=== PATIENT | male | born 1945 | race Caucasian/White ===

== ENCOUNTER 2016-03-08 18:12 | Emergency (ER) | payer OTHER, MEDICARE ==
[2016-03-08] MEDS ORDERED: NS 0.9% 1000 ML* 2,000 ML IV ONE (18:55)
[2016-03-08 19:50] LABS: Hematocrit 41 % (42-52); Hemoglobin 13.5 g/dl (14.0-18.0); Mean Corpuscular HGB Conc 33 g/dl (31-36); Mean Corpuscular Hemoglobin 29 pg (27-31); Mean Corpuscular Volume 86 fL (80-94); Mean Platelet Volume 8 um3 (7.4-10.4); Red Blood Count 4.72 10^6/ul (4.0-5.4); Red Cell Distribution Width 14 % (10.5-15); White Blood Count 10.5 10^3/ul (3.5-10.8)
[2016-03-08 19:53] LABS: Add Diff/Slide Review? Slide Review Added; Comments Flag Yes
[2016-03-08 20:05] LABS: Albumin 3.8 g/dL (3.2-5.2); BUN/Creatinine Ratio 16.3 (8-20); Calcium 8.6 mg/dL (8.6-10.3); EGFR African American 74.6 (>60); Globulin 3.1 g/dL (2-4); Potassium 3.6 mmol/L (3.5-5.0); Total Bilirubin 0.9 mg/dL (0.2-1.0); Total Protein 6.9 g/dL (6.4-8.9)
[2016-03-08 20:07] LABS: Troponin I 0.01 ng/mL (<0.04)
[2016-03-08] MEDS ORDERED: Ibuprofen TAB* 400 MG PO ONE (20:35)
--- NOTE | 2016-03-08 20:54 | RAD ---
Indication: Cough, fever. Single frontal view of the chest performed at 1930 hours was reviewed. Comparison is made with previous exam dated February 24, 2013. No mediastinal shift is noted. Heart is of normal size and configuration. Lung diamond appear clear. IMPRESSION: NO ACTIVE CARDIOPULMONARY DISEASE IS NOTED.
[2016-03-08] MEDS ORDERED: Oseltamivir CAP* 75 MG PO ONE (21:04)
[2016-03-08 21:11] VITALS: BP 130/83
--- NOTE | 2016-03-08 22:46 | ED ---
I, Oh,Vi, scribed for Kirill Swift MD on 03/08/16 at 1842 . HPI Febrile Illness - HPI Summary HPI Summary: This 70 y/o male presents to ED for intermittent fever and increased general weakness since 3 days ago. Pt was noted with a fall while ambulating due to general weakness. Pt reports chills, productive cough with clear sputum, nasal congestion, general myalgia, and occipital BRICEÑO. Pt has been controlling his symptoms with ibuprofen and Mucinex. PMHx includes chronic low back spasm. Pt denies any n/v/d, diaphoresis, or dysuria. Pt is UTD with flu shot. Primary care involves Dr. Tomas. Daughter and , who are present at bedside, express concern with decreased appetite, increased weakness, and increased difficulty with independent ambulation. 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, Medical Records Onset/Duration: Started Days Ago, Atraumatic, Still Present Timing: Lasting Days - 2 days ago Pain Intensity: 8 Pain Scale Used: 0-10 Numeric Aggravating Factors: Nothing Alleviating Factors: Nothing Associated Signs and Symptoms: Cough - productive, Headache, Myalgia - general, Weakness - Allergy/Home Medications Allergies/Adverse Reactions: Allergies Allergy/AdvReac Type Severity Reaction Status Date / Time Chloramphenicol Allergy Hives Verified 03/08/16 18:27 [From Chloromycetin] PMH/Surg Hx/FS Hx/Imm Hx Cardiovascular History: Reports: Hx Coronary Artery Disease - BORDERLINE CHOLESTEROL CONTROL WITH MEDICATION, Hx Hypercholesterolemia - ON LIPITOR Respiratory History: Denies: Hx Pneumonia - NEW DX 01/26/13 GI History: Reports: Other GI Disorders - HX FATTY LIVER Musculoskeletal History: Reports: Hx Back Problems - CHRONIC BACK PAIN/SPASMS Sensory History: Reports: Hx Contacts or Glasses Denies: Hx Hearing Aid Opthamlomology History: Reports: Hx Contacts or Glasses - Surgical History Surgery Procedure, Year, and Place: 1988 [place]CTOMY,[place], [place]. 2011 [place]OSCOPY, [place]. TRIGER FINGER RELEASE 04/2012 Hx Anesthesia Reactions: No Infectious Disease History: No Infectious Disease History: Denies: Traveled Outside the [place] in Last 30 Days - Family History Known Family History: Positive: Cardiac Disease - Brother - CABG, Diabetes - Brother - Social History Lives: With Family Alcohol Use: None Hx Substance Use: No Substance Use Type: Reports: None Hx Tobacco Use: No Smoking Status (MU): Never Smoked Tobacco Review of Systems Positive: Fever, Chills. Negative: Skin Diaphoresis Positive: Nasal Discharge Negative: Chest Pain Positive: Cough - productive with clear sputum Negative: Vomiting, Diarrhea, Nausea Negative: dysuria Positive: Myalgia - general Positive: Rash - chronic, recurrent rash at back Positive: Headache - occipital BRICEÑO, Weakness - general Negative: Anxious, Depressed All Other Systems Reviewed And Are Negative: Yes Physical Exam - Summary Physical Exam Summary: Constitutional: Well-developed, Well-nourished, Alert. (-) Distressed Skin: Warm, Dry HENT: Normocephalic; Atraumatic Eyes: Conjunctiva normal Neck: Musculoskeletal ROM normal neck. (-) JVD, (-) Stridor, (-) Tracheal deviation Cardio: Rhythm regular, rate normal, Heart sounds normal; Intact distal pulses; The pedal pulses are 2+ and symmetric. Radial pulses are 2+ and symmetric. (-) Murmur Pulmonary/Chest wall: Effort normal. (-) Respiratory distress, (-) Wheezes, (-) Rales Abd: Soft, (-) Tenderness, (-) Distension, (-) Guarding, (-) Rebound Musculoskeletal: (-) Edema Lymph: (-) Cervical adenopathy Neuro: Alert, Oriented x3, Unable to elicit DTR with any of pt's extremities. Psych: Mood and affect Normal Triage Information Reviewed: Yes Vital Signs On Initial Exam: Initial Vitals Temp Pulse Resp BP Pulse Ox 102.6 F 107 22 123/64 92 03/08/16 18:22 03/08/16 18:22 03/08/16 18:22 03/08/16 18:22 03/08/16 18:22 Vital Signs Reviewed: Yes Diagnostics - Vital Signs Vital Signs Temp Pulse Resp BP Pulse Ox 03/08/16 18:22 102.6 F 107 22 123/64 92 - Laboratory Result Diagrams: 03/08/16 19:32 03/08/16 19:32 Lab Statement: Any lab studies that have been ordered have been reviewed, and results considered in the medical decision making process. - Radiology CXR Radiology Interpretation Completed By: Radiologist Re-Evaluation - Re-Evaluation First Eval Re-Evaluation Time: 21:05 Change: Unchanged Comment: MD in room to discuss plan of care involving admission vs. discharge. Family members are comfortable with discharge, and pt himself wants to be discharge. Course/Dx - Diagnoses Provider Diagnoses: Influenza - Provider Notifications Discussed Care Of Patient With: Dr. Martinez (Neurologist) at 1855 PM Time Discussed With Above Provider: 18:55 Discharge - Discharge Plan Condition: Stable Disposition: HOME Prescriptions: Oseltamivir CAP* [Tamiflu CAP*] 75 mg PO BID #10 cap Patient Education Materials: Ibuprofen (By mouth), Oseltamivir (By mouth), Influenza (ED) Referrals: Julius Tomas MD [Primary Care Provider] - The documentation as recorded by the Med garcia Soohyun accurately reflects the service I personally performed and the decisions made by me, Kirill Swift MD.
--- NOTE | 2016-03-08 23:11 | CONS ---
NEUROLOGY CONSULT NOTE: DATE OF CONSULT: 03/08/16 - EMERGENCY DEPT REQUESTING PROVIDER: Dr. Swift in ED. PRIMARY CARE PHYSICIAN: Dr. Julius Tomas. REASON FOR CONSULT: Lower extremity weakness; questionable areflexia in the lower extremities HISTORY OF PRESENT ILLNESS: The patient is a 70-year-old right-handed male who has been having probably an upper respiratory tract infection in the past few days with some coughing, some of which was productive. In the past few days he has been feeling weak and has been resting in bed most of the day. Today, when he tried to get off the bed, he was not able to and had to roll to his side to get off the bed. When he tried to walk, he felt weakness in both legs. He was eventually brought to the ED and as he was walking to the car by his family, he really had difficulty walking and had to grab a wheelchair to get to the car. When he was evaluated in the ED, there was a question of areflexia in the lower extremities and therefore Neurology was called for consult. PAST MEDICAL HISTORY: 1. Dyslipidemia. 2. History of back pain. PAST SURGICAL HISTORY: 1. Status post vasectomy. 2. Status post trigger finger release in April 2012. MEDICATIONS: 1. Diazepam 2. Atorvastatin 20 mg at night 3. Aspirin 81 mg daily 4. Vitamin D ALLERGIES: Chloramphenicol FAMILY HISTORY: Mother at age 82 from an NC, father at age 62 from bacterial endocarditis. Brother, history of diabetes and coronary artery disease. SOCIAL HISTORY: The patient lives with his . 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 No history of tobacco, alcohol use or drug use. REVIEW OF SYSTEMS: Complete review of systems was performed and other than what was mentioned in HPI, was negative. PHYSICAL EXAM: Blood pressure 109/63, pulse 104, respiratory rate 17, O2 sat 94 %. The patient is awake, alert, and oriented x3. Pupils are symmetric and reactive to light. Extraocular movements are intact. Visual diamond are intact to confrontation. V1 to V3 is intact bilaterally to light touch and pinprick. Tongue is in midline. Palate elevates upward. Strength is 5/5 throughout. Sensation is intact to light touch and pinprick in the upper and lower extremities. Reflexes are 2+ in the upper extremities. It is 2+ in the patella and 1+ in the Achilles. [id number] is intact bilaterally. Heel-to- hook is intact bilaterally. Gait is narrow based and steady. DIAGNOSTIC STUDIES/LAB DATA: WBC 10.5, hemoglobin 13.5, hematocrit 41, platelets 138. Sodium 133, potassium of 3.6, BUN 20, creatinine 1.2. Alkaline phosphatase 33, AST 39, ALT 36. ASSESSMENT AND PLAN: The patient is a 70-year-old male with history of upper respiratory tract infection in the past few days, was found to have some difficulty walking today. On the current exam, he has full strength and there is no areflexia and therefore no finding suggestive of Guillain-Frederick syndrome. Probably the patient was deconditioned slightly after a few days of lying down on the bed and had some difficulty ambulating after standing up. No further neurological workup is needed at this point. CC: Dr. Julius Tomas* [id number]/[facility] #: [id number] MTDD
== END 2016-03-08 21:28 | disposition home or self-care (01) ==
LOC: ED 18:12
DX: J11.1 Influenza due to unidentified influenza virus with other respiratory manifestations (principal); R53.1 Weakness; R05 Cough; R21 Rash and other nonspecific skin eruption; R51 Headache
CPT/HCPCS: 36415; 71010; 80053; 83605; 84484; 85025; 85610; 85730; 87040; 87502; 93005; 99283; A9270-GY

== ENCOUNTER 2017-03-28 10:13 | Observation (INO) | payer BC, MEDICARE ==
[2017-03-28 10:50] LABS: ABS Basophils 0 10^3/ul (0-0.2); ABS Eosinophils 0 10^3/ul (0-0.6); ABS Lymphocytes 1.1 10^3/ul (1.0-4.8); ABS Neutrophils 5.3 10^3/ul (1.5-7.7); ABS Nucleated RBC 0 10^3/ul; Eosinophil % 0.1 % (0-6); Hematocrit 45 % (42-52); Hemoglobin 15.2 g/dl (14.0-18.0); Lymphocyte % 14.5 % (25-47); Mean Corpuscular HGB Conc 34 g/dl (31-36); Mean Corpuscular Hemoglobin 29 pg (27-31); Mean Corpuscular Volume 87 fL (80-94); Mean Platelet Volume 7 um3 (7.4-10.4); Nucleated Red Blood Cells % 0; Platelet Count 175 10^3/ul (150-450); Red Blood Count 5.21 10^6/ul (4.0-5.4); Red Cell Distribution Width 14 % (10.5-15); White Blood Count 7.5 10^3/ul (3.5-10.8)
[2017-03-28 11:06] LABS: EGFR Non-African American 58.4 (>60)
--- NOTE | 2017-03-28 11:11 | RAD ---
INDICATION: Weakness. COMPARISON: Comparison is made with prior study from March 08, 2016. TECHNIQUE: A portable view of the chest was obtained. FINDINGS: Cardiac and mediastinal contours appear to be within normal limits. The lungs are clear. No pleural effusion is seen. IMPRESSION: NO EVIDENCE FOR ACUTE DISEASE.
[2017-03-28] MEDS ORDERED: Aspirin Low Dose CHEW TAB* 81 MG PO ONE (11:25)
[2017-03-28] MEDS ORDERED: Aspirin Low Dose CHEW TAB* 81 MG ONE (11:25)
[2017-03-28] MEDS ORDERED: NS 0.9% 1000 ML* 1,000 ML IV SCH (11:45)
[2017-03-28] MEDS ORDERED: Iodixanol* (CONTRAST) 320 MG/ML 100 ML SDV IV ONE (12:01)
--- NOTE | 2017-03-28 12:21 | RAD ---
INDICATION: Tachycardia, low oxygenation, elevated troponin. COMPARISON: Comparison is made with a prior chest x-ray study from March 28, 2017. TECHNIQUE: A CT angiogram of the chest was performed with intravenous following intravenous injection of 92 ml of is a PICC 320 nonionic contrast. Contiguous axial sections were obtained from the lung apices through the lung bases. Images were reconstructed in the coronal and sagittal planes. FINDINGS: Examination of the pulmonary arteries is limited due to motion artifact at the level of the lung bases and basilar segmental arteries. No intraluminal filling defect or pulmonary embolism is seen. The heart is within normal limits in size. No pericardial effusion is present. The thoracic aorta is normal in caliber and demonstrates homogeneous contrast opacification. There are mildly prominent mediastinal lymph nodes measuring up to 0.9 cm in transverse dimension although no enlarged lymph nodes are seen by size criteria. No enlarged hilar lymph nodes are noted. There are mild dependent bilateral lower lobe infiltrates left greater than right suggestive of atelectasis. No pleural effusion is seen. Images of the upper abdomen demonstrate fatty infiltration of the liver and cholelithiasis. No gallbladder wall thickening is noted. No significant focal osseous abnormality is seen. IMPRESSION: 1. LIMITED STUDY, NO EVIDENCE FOR PULMONARY EMBOLISM. 2. SMALL DEPENDENT BILATERAL LOWER LOBE INFILTRATES SUGGESTIVE OF ATELECTASIS. 3. CHOLELITHIASIS AND HEPATIC STEATOSIS.
[2017-03-28] MEDS ORDERED: NS 0.9% 1000 ML* 1,000 ML BOLUS SCH (13:00)
[2017-03-28 13:55] LABS: Urine Appearance Clear; Urine Blood 3+ (Negative); Urine Color Yellow; Urine Ketones Trace (Negative); Urine Protein 2+(100 mg/dL) (Negative); Urine Specific Gravity 1.033 (1.010-1.030); Urine Urobilinogen Negative (Negative)
[2017-03-28] MEDS: Metoprolol Tartrate TAB* 25 MG PO SCH ×2 (15:14→23:17)
[2017-03-28] MEDS: NS 0.9% 1000 ML* 1,000 ML IV SCH ×2 (15:14→20:53)
[2017-03-28] MEDS: guaiFENesin ER TAB 600 MG PO SCH ×2 (18:16→21:07)
--- NOTE | 2017-03-28 20:42 | CONS ---
CC: Dr. Margaret Huertas * CONSULTATION REPORT: DATE OF CONSULT: 03/28/17 PATIENT OF: Dr. Tomas. HISTORY OF PRESENT ILLNESS: This is a 71-year-old right-handed man, who has had a congestion with severe cough in the past week or so and has been started on Tamiflu and has had some progressive weakness. His history varies. He was basically bed bound since Wednesday with the flu, but was able to get up and out of bed on Wednesday to go to the bathroom. It is unclear whether he tried to get out of bed yesterday, but last night, when he tried to get out of bed, he could not and he fell on the floor a couple of times. Eventually, family just kept him on the floor and both his arms and legs were weak in terms of getting up and this has been going on for a few days' time, but it was clearly worse last night. So, he came in to the hospital. Of note, he had a very similar episode back on 03/08/16 where he was unable to get out of bed following an upper respiratory infection with some coughing and feeling weak. The day of presentation to the ER, he had to roll to his side to get off his bed but he could not walk because of leg weakness. He was evaluated by Neurology, who thought this is due to being deconditioned. He has had no numbness in his legs. He has had no change in his urination. His problem with urinating has been an issue of getting to the bathroom given his mobility issues. He has had no headache. No double vision. No room spinning. No lightheadedness. PAST MEDICAL HISTORY: He has a history of dyslipidemia, history of low back pain, and has had a recent MRI scan. PAST SURGICAL HISTORY: He is status post vasectomy and trigger finger release. MEDICATIONS: Include: 1. Crestor 5 mg daily. 2. Multivitamin. SOCIAL HISTORY: He does not smoke or drink. REVIEW OF SYSTEMS: Negative in all 14 spheres other than HPI. PHYSICAL EXAM: Temperature 98.5, pulse 102, respiratory rate is 18, blood pressure 136/79. He is alert and oriented with normal speech, comprehension. Cranial nerves II through XII were intact. Fundi showed sharp discs bilaterally. Motor exam revealed normal tone. Strength was 5/5. Finger-to- nose is intact as well as [id number]. Reflexes were 1+ and equal. Present ankle jerks. He had no glove- stocking vibratory sensory loss. He was able to get up out of bed and stand, which was wide based, but he could not stand with his feet together. He had a mildly unsteady Romberg. He noted that this was better than he was last night. Chest: Clear. Cardiovascular: Regular rate and rhythm. Abdomen is soft with positive bowel sounds. He had no temporal tenderness. LABORATORY DATA: CBC was normal. Sed rate was 38. D-dimer is 387. Sodium is 131, creatinine 1.22. Lactic acid 2.2. Troponin 0.13. CPK was 16,495. C- reactive protein was 66.9. TSH is pending. IMPRESSION AND PLAN: I discussed with Arthur Ivan and Dr. Huertas that his history was suggestive of possible muscle weakness and I was concerned about a muscular problem. His initial partial fractionated cpkwas only 176. I was wondering whether he could have possibly polymyalgia rheumatica, possibly triggered by a virus, but this [place] [address] looks like myositis, presumably on a viral basis with his sed rate of low. He will need to be admitted for hydration and if his CPK does not begin to come down or he gets weaker, we will treat him empirically with steroids. I think this is much more likely be due to virus and it seems like he is even improving now, but we will be following the part of the hydration as to prevent kidney injury secondary to his rhabdomyolysis. Thank you for sharing his case. [id number]/[facility] #: [id number] [facility] HOSPITALChayito
[2017-03-28] MEDS ORDERED: Calcium Carbonate CHEW TAB* 500 MG (TUMS) PO PRN (20:55)
--- NOTE | 2017-03-28 21:16 | ED ---
Jesusita Conroy Jason, scribed for Margaret Huertas MD on 03/28/17 at 1050 . Complex/Multi-Sys Presentation - HPI Summary HPI Summary: This patient is a 71 year old M BIBA to [facility] with a chief complaint of weakness since 1 night ago. The patient states that he is experiencing weakness in the legs and arms and states his extremities dont serve the purpose of leveraging me. Additionally, he states that he fell out of bed [address] to the restroom and because was too weak to reach the restroom he urinated on the spot. He describes that his legs could not hold him, and that herequired assistance to get up. He includes that he received an epidural injection for his spine 3 weeks ago, started on Tamiflu 4 days ago, and that he experienced similar weakness 1 year ago when a physician considered [place] but instead diagnosed him with the flu. Patient is able to pull himself to sitting position using the beds side rail. - History Of Current Complaint Chief Complaint: EDWeakness Time Seen by Provider: 03/28/17 10:30 Hx Obtained From: Patient Onset/Duration: Gradual Onset, Lasting Days - since 1 night ago Timing: Constant Aggravating Factor(s): nothing Alleviating Factor(s): nothing Associated Signs And Symptoms: Positive: Other - Patient reports nasal congestion, cough, and mild BRICEÑO. Patient denies CP, SOB, and dizziness. - Allergies/Home Medications Allergies/Adverse Reactions: Allergies Allergy/AdvReac Type Severity Reaction Status Date / Time chloramphenicol Allergy Hives Verified 03/28/17 10:20 [From Chloromycetin] PMH/Surg Hx/FS Hx/Imm Hx Previously Healthy: No Endocrine/Hematology History: Denies: Hx Diabetes Cardiovascular History: Reports: Hx Coronary Artery Disease - BORDERLINE CHOLESTEROL CONTROL WITH MEDICATION, Hx Hypercholesterolemia - ON LIPITOR Denies: Hx Hypertension, Hx Pacemaker/ICD Respiratory History: Denies: Hx Pneumonia - NEW DX 01/26/13 GI History: Reports: Other GI Disorders - HX FATTY LIVER History: Denies: Hx Renal Disease Musculoskeletal History: Reports: Hx Back Problems - CHRONIC BACK PAIN/SPASMS, Other Musculoskeletal History - ideopathic muscle spasms Denies: Hx Rheumatoid Arthritis, Hx Osteoporosis, Hx Scoliosis Sensory History: Reports: Hx Contacts or Glasses Denies: Hx Hearing Aid Opthamlomology History: Reports: Hx Contacts or Glasses Neurological History: Reports: Other Neuro Impairments/Disorders - PAIN CLINIC PT. Denies: Hx Headaches Psychiatric History: Denies: Hx Panic Disorder - Surgical History Surgery Procedure, Year, and Place: 1989 [place]CT[place]Y,[place], [place]. 2011 COL[place]OSCOPY, [place]. TRIGER FINGER RELEASE 2013. RIGHT ELBOW BURSECTOMY [facility] 01/18/17 Hx Anesthesia Reactions: No Infectious Disease History: No Infectious Disease History: Denies: Traveled Outside the [place] in Last 30 Days - Family History Known Family History: Positive: Cardiac Disease - Brother - CABG, Diabetes - Brother - Social History Alcohol Use: Rare Alcohol Amount: beer, wine Hx Substance Use: No Substance Use Type: Reports: None Substance Use Comment - Amount & Last Used: occasionally Hx Tobacco Use: No Smoking Status (MU): Former Smoker Review of Systems Positive: Other - nasal congestion Negative: Chest Pain Positive: Cough. Negative: Shortness Of Breath Neurological: Negative - dizziness Positive: Headache - mild, Weakness - upper extremity and lower extremity All Other Systems Reviewed And Are Negative: Yes Physical Exam - Summary Physical Exam Summary: Appearance: Ill-appearing, moderate pain distress, Well-nourished Skin: Warm, color reflects adequate perfusion, Bilateral knee abrasions Head: Normal Head/Face inspection Eyes: Conjunctiva clear ENT: Normal inspection Neck: Supple, no nodes, no JVD. Respiratory: Lungs clear, Normal breath sounds, no respiratory distress Cardio: RRR, No murmur, pulses normal, brisk capillary refill Abdomen: soft, nontender Bowel sounds: present Musculoskeletal: Strength Intact/ ROM intact. No calf tenderness. No edema. No lumbar spinal tenderness and no site of previous injection is apparent as there is no redness or swelling. Neuro: A&O x3. CN II-XII intact. Motor function 5/5. Sensations intact. Gait WNL. Heel to hook normal, finger to nose normal, knee reflexes 2+ and symmetric , brachial reflexes are 2+ and symmetrical. Psychological: Normal Triage Information Reviewed: Yes Vital Signs On Initial Exam: Initial Vitals Temp Pulse Resp BP Pulse Ox 98.5 F 106 18 128/86 96 03/28/17 10:18 03/28/17 10:18 03/28/17 10:18 03/28/17 10:18 03/28/17 10:18 Vital Signs Reviewed: Yes Diagnostics - Vital Signs Vital Signs Temp Pulse Resp BP Pulse Ox 03/28/17 10:20 105 11 95 03/28/17 10:18 98.5 F 106 18 128/86 96 - Laboratory Lab Results: Lab Results 03/28/17 03/28/17 03/28/17 Range/Units 10:21 10:43 10:43 WBC 7.5 (3.5-10.8) 10^3/ul RBC 5.21 (4.0-5.4) 10^6/ul Hgb 15.2 (14.0-18.0) g/dl Hct 45 (42-52) % MCV 87 (80-94) fL MCH 29 (27-31) pg MCHC 34 (31-36) g/dl RDW 14 (10.5-15) % Plt Count 175 (150-450) 10^3/ul MPV 7 L (7.4-10.4) um3 Neut % (Auto) 71.1 (38-83) % Lymph % (Auto) 14.5 L (25-47) % [place] % (Auto) 13.8 H (1-9) % Eos % (Auto) 0.1 (0-6) % Baso % (Auto) 0.5 (0-2) % Absolute Neuts (auto) 5.3 (1.5-7.7) 10^3/ul Absolute Lymphs (auto) 1.1 (1.0-4.8) 10^3/ul Absolute Monos (auto) 1.0 H (0-0.8) 10^3/ul Absolute Eos (auto) 0 (0-0.6) 10^3/ul Absolute Basos (auto) 0 (0-0.2) 10^3/ul Absolute Nucleated RBC 0 10^3/ul Nucleated RBC % 0 ESR 38 (0-40) mm/Hr D-Dimer, Quantitative 387 H (Less Than 230) ng/mL Sodium 131 L (133-145) mmol/L Potassium 3.8 (3.5-5.0) mmol/L Chloride 95 L (101-111) mmol/L Carbon Dioxide 27 (22-32) mmol/L Anion Gap 9 (2-11) mmol/L BUN 14 (6-24) mg/dL Creatinine 1.22 H (0.67-1.17) mg/dL Est GFR ( Amer) 75.1 (>60) Est GFR (Non-Af Amer) 58.4 (>60) BUN/Creatinine Ratio 11.5 (8-20) Glucose 112 H (70-100) mg/dL Lactic Acid (0.5-2.0) mmol/L Calcium 9.5 (8.6-10.3) mg/dL Magnesium 2.0 (1.9-2.7) mg/dL Total Bilirubin 1.10 H (0.2-1.0) mg/dL AST 176 H (13-39) U/L ALT 47 (7-52) U/L Alkaline Phosphatase 41 (34-104) U/L Total Creatine Kinase 74807 H (10-223) U/L CK-MB (CK-2) 13.7 H (0.6-6.3) ng/mL Troponin I 0.13 H* (<0.04) ng/mL C-Reactive Protein 66.60 H (< 5.00) mg/L B-Natriuretic Peptide ( - 100) pg/mL Total Protein 7.9 (6.4-8.9) g/dL Albumin 4.3 (3.2-5.2) g/dL Globulin 3.6 (2-4) g/dL Albumin/Globulin Ratio 1.2 (1-3) TSH Pending 03/28/17 03/28/17 Range/Units 10:43 10:43 WBC (3.5-10.8) 10^3/ul RBC (4.0-5.4) 10^6/ul Hgb (14.0-18.0) g/dl Hct (42-52) % MCV (80-94) fL MCH (27-31) pg MCHC (31-36) g/dl RDW (10.5-15) % Plt Count (150-450) 10^3/ul MPV (7.4-10.4) um3 Neut % (Auto) (38-83) % Lymph % (Auto) (25-47) % [place] % (Auto) (1-9) % Eos % (Auto) (0-6) % Baso % (Auto) (0-2) % Absolute Neuts (auto) (1.5-7.7) 10^3/ul Absolute Lymphs (auto) (1.0-4.8) 10^3/ul Absolute Monos (auto) (0-0.8) 10^3/ul Absolute Eos (auto) (0-0.6) 10^3/ul Absolute Basos (auto) (0-0.2) 10^3/ul Absolute Nucleated RBC 10^3/ul Nucleated RBC % ESR (0-40) mm/Hr D-Dimer, Quantitative (Less Than 230) ng/mL Sodium (133-145) mmol/L Potassium (3.5-5.0) mmol/L Chloride (101-111) mmol/L Carbon Dioxide (22-32) mmol/L Anion Gap (2-11) mmol/L BUN (6-24) mg/dL Creatinine (0.67-1.17) mg/dL Est GFR ( Amer) (>60) Est GFR (Non-Af Amer) (>60) BUN/Creatinine Ratio (8-20) Glucose (70-100) mg/dL Lactic Acid 2.2 H* (0.5-2.0) mmol/L Calcium (8.6-10.3) mg/dL Magnesium (1.9-2.7) mg/dL Total Bilirubin (0.2-1.0) mg/dL AST (13-39) U/L ALT (7-52) U/L Alkaline Phosphatase (34-104) U/L Total Creatine Kinase (10-223) U/L CK-MB (CK-2) (0.6-6.3) ng/mL Troponin I (<0.04) ng/mL C-Reactive Protein (< 5.00) mg/L B-Natriuretic Peptide 37 ( - 100) pg/mL Total Protein (6.4-8.9) g/dL Albumin (3.2-5.2) g/dL Globulin (2-4) g/dL Albumin/Globulin Ratio (1-3) TSH Result Diagrams: 03/28/17 10:43 03/28/17 10:43 Lab Statement: Any lab studies that have been ordered have been reviewed, and results considered in the medical decision making process. - Radiology CXR Radiology Interpretation Completed By: Radiologist - CXR reveals NO EVIDENCE FOR ACUTE DISEASE. ED physician has reviewed this radiology report . - CT Chest CT Interpretation Completed By: Radiologist - Chest CTA reveals 1. LIMITED STUDY , NO EVIDENCE FOR PULMONARY EMBOLISM. 2. SMALL DEPENDENT BILATERAL LOWER LOBE INFILTRATES SUGGESTIVE OF ATELECTASIS. 3. CHOLELITHIASIS AND HEPATIC STEATOSIS. ED physician has reviewed this radiology - EKG 1029 Cardiac Rate: Tachycardia EKG Rhythm: Sinus Tachycardia - [address] Segment: Non-Specific Ectopy: None EKG Interpretation: normal AVIVCT, prolonged QTc (510), axis is 0. Small Q in 3 and aVF. EKG Comparison: No Significant Change - when compared to EKG from 03/08/16 Re-Evaluation - Re-Evaluation Second Eval Re-Evaluation Time: 11:10 Change: Unchanged Comment: The patient was informed that his Troponin 1 lab result was elevated at 0.13. Third Eval Re-Evaluation Time: 13:00 - pt able to stand and void. Dr. Eddy with pt. Dr. Moulton will admit. Change: Improved Complex Multi-Symp Course/Dx Course Of Treatment: In the ED course the patient was given IV fluids. The patient's is negative for influenza A and B. Patients last cardiac stress test was 12/04/04, and was reviewed by Dr. Huertas and reported to be normal. Medications reviewed, allergies noted. Aspirin 324 mg administered to pt at 1126. Dr. Huertas consulted with Dr. Eddy, neurologist, at 1100 to discuss the patients arrived condition. At 1128 Dr. Eddy was consulted to inform him of the patient's current condition and the elevated troponin. Following this discussion, at [address] Zelaya, Culinary Assistant, to discuss the elevated troponin. At 1215 Dr. Eddy entered the patient room with Dr. Huertas. During this visit, the patient was able to stand and void. At 1235 Dr. Huertas left the patient room and is waiting for Dr. Eddy's and Dr. Zelaya's evaluation. No additional imaging per Dr. Eddy from a neurologic standpoint. At 1310 the patient was admitted to [facility]. Medical management for any possibility of heart disease and the elevated troponin at this time per Dr. Zelaya. - Diagnoses Provider Diagnoses: Generalized weakness, Rhabdomyolysis, Myositis, Elevated troponin - Physician Notifications Discussed Care Of Patient With: Fannie Zelaya - will see pt in ED Time Discussed With Above Provider: 11:00 Instructed by Provider To: Admit As Inpatient Discharge - Discharge Plan Condition: Good Disposition: ADMITTED TO [facility] The documentation as recorded by the Jesusita garcia Jason accurately reflects the service I personally performed and the decisions made by me, Margaret Huertas MD.
--- NOTE | 2017-03-28 21:31 | HP ---
HISTORY AND PHYSICAL: DATE OF ADMISSION: 03/28/17 ADMITTING PHYSICIAN: Gonsalo Moulton MD PRIMARY CARE PHYSICIAN: Dr. Julius Tomas CHIEF COMPLAINT: Profound weakness for the last 36 hours in the setting of recent viral illness. HISTORY OF PRESENT ILLNESS: Jose Love is a 71-year-old male with past medical history of hyperlipidemia, on Crestor and spinal stenosis with recent corticosteroid epidural injection 3 weeks prior to admission. He approximately 1 week ago started having profound coughing which was productive, slight headache. Denied fevers or chills. Occasional slight nausea. No abdominal pain. He saw PCP, Dr. Tomas, 4 days prior to admission on 03/24/17 and was prescribed empirically Tamiflu, which he has taken until the day prior to admission in the morning. However, for the last 36 hours prior to admission, he has had profound generalized weakness, inability to really get up out of his bed. He first says that he "fell out of his bed," but then denies actually falling, just unable to get up. Upon presentation to the [facility], he was found to have elevated troponin to 0.13. He was tachycardic to 105. He had a D-dimer, which was 387 and a lactic acid which was 2.2. There was some concern that he was satting 93% on room air. So, a CT angiogram was obtained, which did not have any evidence of pulmonary embolism, had some atelectasis of the bilateral lower lobes. Dr. Eddy of Neurology was consulted and CK was drawn and found to be elevated at 16,500, concerning for rhabdomyolysis. His ESR was 38 and CRP 66.6. His EKG showed some Q wave in III, sinus tachycardia, and poor R-wave progression. He is being admitted for profound weakness and treatment of rhabdomyolysis versus other inflammatory myositis in the setting of statin use and recent suspected viral illness. PAST MEDICAL HISTORY: Includes hyperlipidemia and back pain secondary to spinal stenosis. MEDICATIONS: Include: 1. Crestor 5 mg daily, has been on it for few years and prior to that was on 10 to 15 years of Lipitor, which was stopped for muscle aches. 2. Recent Tamiflu. ALLERGIES: To CHLOROMYCETIN, persisting hives. FAMILY HISTORY: Includes brother with metabolic syndrome, heart disease, diabetes, hypertension. Mother at age 82 of a heart attack, dad at age 62 of subacute bacterial infective endocarditis that was reportedly not diagnosed in time. 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 Lives with his . Medical surrogate is his son, dentist, Damian Love. He wishes to be DNR/DNI. The patient is a former smoker approximately 5 years, quit 45 years ago. Occasional alcohol use. REVIEW OF SYSTEMS: Complete 14-point review of systems negative except as per HPI. PHYSICAL EXAMINATION GENERAL APPEARANCE: No acute distress. VITAL SIGNS: Initial blood pressure 128/86, currently 139/73; heart rate initially 105, now is 96; respiratory rate 18, now 22; satting between 94% and 96% on room air; temperature 98.5. HEENT: Normocephalic, atraumatic. Pupils are equal, round, and reactive to light. Extraocular motions are intact. NECK: Supple. No cervical lymphadenopathy. LUNGS: Respirations clear to auscultation bilaterally. No wheezing, rales, or rhonchi. CARDIOVASCULAR: Regular rate and rhythm. No murmurs, rubs, or gallops. ABDOMEN: Soft, nontender, nondistended. No rebound or guarding. No Ryan's sign. EXTREMITIES: Warm and well perfused. No peripheral edema. NEURO: Strength 5/5 in hip flexion, dorsi and plantarflexion of the feet. 5/5 power press tender strength, biceps, triceps, deltoids, wrist extension and flexion, and finger abduction. [id number] intact. No pronator drift. Rapid hand motions intact. Cranial nerves II through XII intact. Some slight tremor or clonus when testing wrist extension. No clonus in bilateral lower extremities. No Babinski sign (mute). SKIN: No lesions, no rashes other than a few small abrasions and also some slight erythema near the bilateral knees. He was crawling on the ground. Slight warmth to the left knee. DIAGNOSTIC STUDIES/LAB DATA: White count 7.5, hemoglobin 15.2, hematocrit 45, platelets 175, neutrophils 71.1. ESR 38. D-dimer 387. Sodium 131, potassium 3.8, chloride 95, carbon dioxide 27, BUN 14, creatinine 1.22, glucose 122, lactic acid 2.2, magnesium 2.0. Total bilirubin 1.10, AST 176, ALT 47, alk phos 41. CK 16,495, CK-MB 13.7, myoglobin pending. Troponin 0.13. CRP 66.6. BNP 37. TSH 1.45. Albumin 4.3. Urinalysis: 2+ protein, 3+ blood, 1+ rbc's. Influenza rapid test, negative for A and B. Imaging: Chest x-ray showed no evidence of acute disease. CT chest angiogram demonstrated no pulmonary embolism. Limited study, however, there was small dependent bilateral lower lobe infiltrates suggestive of atelectasis. There was cholelithiasis and hepatic steatosis. ASSESSMENT AND PLAN: Jose Love is a 71-year-old male with history of hyperlipidemia and spinal stenosis, presenting with suspected viral illness 7 days prior to admission, progressive to profound generalized weakness for 36 hours preventing him from leaving his bed. He is found to most likely have rhabdomyolysis with elevated CK of 16,500 range. Also, in the setting of chronic Crestor use and history of eventual intolerance to Lipitor, although tolerated for 10 to 15 years. We are stopping the Crestor, continue IV fluids 200 cc an hour. Repeat CK and BMP. Admit him to observation status. We will get Physical Therapy to work with him. For his elevated troponin, appreciate Dr. Zelaya's evaluation here in the ED. She is going to get a bedside echocardiogram likely secondary to his demand ischemia in the setting of recent illness and CK elevation. We will trend troponins every 4 hours, put him on telemetry. The patient always has denied of any chest pain or shortness of breath. We will also follow up on formal Neurology recommendations for other potential etiologies such as idiopathic myositis. The patient did have similar presentation last year when he had high fever of 103. There was some concern for Guillain-[place] syndrome and Dr. Martinez evaluated and did not think this would fit this clinical picture. He had been treated with Tamiflu at that time, although unclear if that preceded his generalized weakness at that time. The patient can eat unrestricted diet given his goals of care; he is a DNR/DNI. His medical surrogate is Damian Love. [id number]/[facility] #: [id number] MAR
[2017-03-28] MEDS ORDERED: Acetaminophen TAB* 325 MG PO PRN (23:20)
--- NOTE | 2017-03-29 02:18 | CONS ---
CC: Dr. Tomas, Hospitalist Service * CARDIOLOGY CONSULTATION NOTE: DATE OF CONSULT: 03/28/17 REASON FOR CONSULT: Elevated troponins. HISTORY OF PRESENT ILLNESS: Mr. Love is a 71-year-old gentleman with no prior cardiac history but he does have atherosclerotic risk. Mr. Love developed what he thought were flu-like symptoms 4 days ago, on Wednesday, where he was feeling weak, some coughing, and rhinorrhea, and just generally not himself. He did not go to the physicians, but called his primary care physician, who provided him with Tamiflu (flu epidemic in the area currently). The patient has not had an appetite and has not been eating in the last 2 to 3 days. He denies orthopnea, PND, myalgias, chest pain, pressure, heaviness. Within the last 24 hours, the patient had profound weakness of the lower extremities. He said he keeps the urinal at his bedside because he has nocturia typically. He got up to use the urinal, but was unable to stand and he ended up on the floor 3 times because of weakness of the lower extremities and he had such profound urgency to urinate that he has had urinary incontinence for what sounds like 24 hours as well. The patient presented to the emergency room today with lower extremity weakness, inability to stand. The patient denies diarrhea, constipation, awareness of fevers or chills. In the emergency department, the patient's troponins were mildly elevated and his CPK was markedly elevated. PAST MEDICAL HISTORY: 1. Morbid obesity. 2. Dyslipidemia, on Lipitor in the past, developed myalgias and has been on Crestor for many years. 3. Spinal stenosis, followed in pain clinic with injections. 4. History of polyuria, longstanding. PAST SURGICAL HISTORY: Includes: 1. Vasectomy. 2. Trigger finger release. MEDICATIONS: Outpatient medications included: 1. MultiVites. 2. Crestor 5 mg daily. ALLERGIES: Medication allergies include CLINDAMYCIN, CHLORAMPHENICOL, and intolerant to Lipitor in the past. FAMILY HISTORY: Significant, he has a brother with a history of bypass surgery and diabetes. His mother at age 82 from a myocardial infarction. His father at age 62 of bacterial endocarditis. 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 Distant smoking history. No recent alcohol intake. I do not appreciate a history of alcohol abuse in the patient's old records. No recreational drug use. REVIEW OF SYSTEMS: See history of present illness for flu-like symptoms starting 4 days ago, anorexia with decreased oral intake, progressive weakness of the lower extremities and with several collapses to the floor, although the patient denies falling and prolonged periods of time on the floor with urinary incontinence and that he is negative for chest pain, pressure, heaviness, exertional problems, orthopnea, or PND. He states he can sleep anywhere, at anytime, in any position, and has been sleeping fine. He states until about 2 or 3 months ago, he would walk a couple of miles a day, but more recently his spinal stenosis has limited this and he is really not active and has not taken up any other sort of exercise. All other 14-point review of systems was unremarkable. PHYSICAL EXAM: The patient is 5 feet 10 inches, weighs 245 pounds, with a BMI of 35 according to the emergency department records. Current vitals, blood pressure 154/4102, pulse is ranging 96 to 108, respiratory rate is 22, temperature 98.5. General Appearance: Short, morbidly obese, predominantly centripetally obese older gentleman, lying at about 15 degrees on a gurney in pillows, in no acute distress. Psychologically, pleasant, cooperative, funny. Neurologically, awake, alert, oriented to person, place, and time. Grossly normal sensory, motor function in the upper and lower extremities. His speech is articulate. Comprehension was good. He was able to follow commands in the bed and moves easily for command to do an echo. Skin: Mediterranean complexion , warm, dry. No appreciable cyanosis or rashes. HEENT: Pupils are equal and round. Mucous membranes are moderately moist. Neck: Thick, but no obvious increase in JVP, thyromegaly, or lymphadenopathy. Breath sounds clear with good effort. No wheezes, rales, or rhonchi. Coronary: S1, S2, regular, rapid , but no murmurs or rubs appreciated. Abdomen: Very rotund, overweight, and firm. Active bowel sounds. Soft and nontender. Lower extremities were free of edema with palpable posterior tibial pulses, 1 to 2+. DIAGNOSTIC STUDIES/LAB DATA: A 12-lead ECG today shows sinus tachycardia, 106 beats a minute, QRS axis of 0 with normal AV and IV conduction times, low volt in the limb leads, appropriate with his obesity, poor R wave progression and some nonspecific ST changes. He has QRS complex in leads III and aVF, cannot rule out an old inferior wall MD. When this EKG is compared with an EKG from , the rate is the same, the low volt is the same, nonspecific ST changes with slight upsloping ST depression in the lateral leads, V4 through V6 is new. Chest x-ray showed no acute disease. CT angiogram was limited but no evidence of pulmonary embolus, small dependent bilateral lower lobe infiltrates consistent with atelectasis, cholelithiasis, and fatty liver noted. White count 7.1, hemoglobin 15.2, hematocrit 45, platelets 175. PTT 387. Chemistry: Sodium 131, potassium 3.8, chloride 95, bicarb 27, BUN 14, creatinine 1.22, glucose 112, lactic acid 2.2. Total bili 1.1, AST 176, ALT 47 , alk phos 41. CPK 16,495,-MB 13.7, myoglobin pending. Troponin #1, 0.13; troponin #2, 0.13. C-reactive protein 67. BNP 37. TSH 1.45. Albumin 4.3, total protein 7.9. Urinalysis: Specific gravity 1.033 with 2+ protein, trace ketones, 3+ "blood", trace white cells, 1+ red blood cells, bacteria absent, esterase negative, nitrite negative. Serology is negative for influenza A and B. Older studies include MRI of the lumbar spine from 03/06/16, showed spondylolisthesis of L4-5 with degenerative disk disease and facet osteoarthritis, L3-4, L4-5; [id number] spinal canal narrowing at both levels. The most recent injection documented was 03/05/17. Bedside SonoSite ultrasound done by myself personally was limited by the patient 's body habitus, but I had good subcostal imaging showing a thick hyperdynamic left ventricle, good right ventricular systolic function, and no evidence of pericardial effusion. The parasternal views were also adequate and confirmed the same. Apical views were suboptimal for evaluation. ASSESSMENT AND PLAN: In summary, Mr. Love is a 71-year-old gentleman with a 4 - to 5-day history of flu-like symptoms, nonspecific, started on Tamiflu with anorexia, decreased oral intake and he additionally has known lumbar spinal stenosis. For the last 24 to 48 hours, the patient had weakness of the lower extremities, which sent him to the floor as described above and he arrived in the hospital with marked elevation of CPK, but fortunately no evidence of renal failure at this point. Cardiac issues include mild elevation in troponins and some mild nonspecific ST changes in the lateral leads in the setting of atherosclerotic risk of family history, dyslipidemia, and morbid obesity. The patient is not currently a candidate for heart cath nor do I think he needs it. IV contrast dye with his current CPK would increase his chance of renal failure. It is most important now to manage his rhabdomyolysis with aggressive IV hydration and any other appropriate management. The patient's Crestor should be stopped and if a statin is resumed in the future , it should be done so with care and careful monitoring of CPKs as this could have contributed to the above scenario. [facility] in terms of working up the patient's mild elevation in troponins in the setting of cardiac risk could include a stress test with nuclear imaging 2- day protocol. If his troponins stay as they are and do not escalate, I think it would be preferable, but I have not completely ruled out obtaining a cardiac catheterization down the road. Statins contraindicated currently. I would not give BRETT inhibitors with his current CPK, but these could be considered in the future. Low-dose beta leander or low-dose calcium-channel blockers would be appropriate for rate lowering and blood pressure control and ischemic protection. Hydration, I think, will bring his heart rate down. I have a high suspicion that Mr. Love has obstructive sleep apnea and this is likely contributing to his general health and overall health and although formal workup will need to be done on an outpatient basis, ensuring he does not desaturate as an inpatient could help with cardiac health and with stabilizing his bigger metabolic picture. I would recommend getting a full cardiac echo non-urgently as he has never had one in the records available to me, but this is nonurgent as the bedside echo has shown that his ventricle is hyperdynamic and he is a good candidate to receive aggressive IV hydration. Cardiology will follow with Internal Medicine and additional recommendations can be made pending his response to the above measures. [id number]/[facility] #: [id number] [facility] CENTERChayito
[2017-03-29] MEDS: NS 0.9% 1000 ML* 1,000 ML IV SCH (03:38)
[2017-03-29] MEDS: Heparin VIAL(*) 5000 UNITS/ML VIAL (FIVE THOUSAND) SUBCUT SCH ×2 (04:58→14:25)
[2017-03-29 05:28] LABS: EGFR Non-African American 82.9 (>60)
[2017-03-29] MEDS ORDERED: Perflutren Lipid Microsphere* 3 ML VIAL ONE (07:45)
[2017-03-29 08:41] VITALS: BP 118/83
[2017-03-29] MEDS ORDERED: NS 0.9% 1000 ML* 1,000 ML IV SCH (08:45)
[2017-03-29] MEDS: Metoprolol Tartrate TAB* 25 MG PO SCH (08:52)
[2017-03-29] MEDS: guaiFENesin ER TAB 600 MG PO SCH (08:52)
--- NOTE | 2017-03-29 09:53 | ECHO ---
Patient: EVONNE TERAN [facility] Rec#: [id number] : 1945 Date: 03/29/2017 Age: 71y Height: 177.8 cm / 70.0 in Weight: 107.95 kg / 237.9 lbs Sex: M BSA: 2.25 Room#: [facility] Admit Date#: 03/28/2017 Type: Inpatient Referring: Gonsalo Moulton Reading: Taqueria Caal MD Instrument Designer: Peg Vu RDCS CC: Julius Tomas MD Transthoracic Echocardiogram Indication: ACS BP: 117/66 HR: 75 Rhythm: NSR Findings History: Flu-like symptoms,obesity,HLD. Technical Comments: The study is technically limited due to patient body habitus. Definity used to enhance images. Left Ventricle: The left ventricular chamber size is decreased. Moderate concentric left ventricular hypertrophy is observed. Global left ventricular wall motion and contractility are within normal limits. The left ventricle appears hyperdynamic. The estimated ejection fraction is greater than 65%. There is no consistent Doppler evidence of clinically significant diastolic dysfunction. Left Atrium: The left atrium is slightly dilated. Right Ventricle: The right ventricular cavity size is normal. The right ventricular global systolic function is normal. Right Atrium: The right atrial cavity size is normal. Aortic Valve: The aortic valve is trileaflet. There is no evidence of aortic regurgitation. There is no evidence of aortic stenosis. Mitral Valve: The mitral valve leaflets are mildly thickened. There is no evidence of mitral regurgitation. There is no evidence of mitral stenosis. Tricuspid Valve: The tricuspid valve leaflets are normal. There is no evidence of tricuspid valve regurgitation. Unable to estimate the right ventricular systolic pressure. Pulmonic Valve: The pulmonic valve appears normal. There is no evidence of pulmonic regurgitation. There is no pulmonic stenosis. Pericardium: The pericardium appears normal. A pericardial fat pad is visualized. Aorta: There is no dilatation of the ascending aorta. The aortic arch is not well visualized. There is no dilation of the aortic root. Pulmonary Artery: The main pulmonary artery appears normal. Venous: The venous system is not well visualized. Contrast: Definity was used to optimize study. A total of 4.5 ml used. Intravenous contrast was used to enhance endocardial border definition. Conclusions Moderate concentric left ventricular hypertrophy is observed. The estimated ejection fraction is greater than 65%. Global left ventricular wall motion and contractility are within normal limits. The right ventricular cavity size is normal. There is no evidence of aortic stenosis. There is no evidence of mitral regurgitation. There is no evidence of tricuspid valve regurgitation. Unable to estimate the right ventricular systolic pressure. The pericardium appears normal. Measurements Name Value Normal Range RVIDd (AP) 2D 2.9 cm (0.9 - 2.6) RVDdMajor (2D) 3.2 cm (2.2 - 4.4) RAd ISD 4CH 4.4 cm (3.4 - 4.9) RA (A4C)W 3.2 cm (2.9 - 4.6) IVSd (2D) 1.7 cm (0.6 - 1) LVPWd (2D) 1.4 cm (0.6 - 1) LVIDd (2D) 3.5 cm (3.6 - 5.4) LVIDs (2D) 2.1 cm - LV FS (2D) 40 % (25 - 45) Aortic Annulus 2.1 cm (1.4 - 2.6) Ao root diameter (2D) 3.2 cm (2.1 - 3.5) Ascending Ao 3.1 cm (2.1 - 3.4) LA dimension (AP) 2D 3.9 cm (2.3 - 3.8) LAd ISD 4CH 5 cm (2.9 - 5.3) LA ISD 4CH W 3.5 cm (2.5 - 4.5) Name Value Normal Range LA ESV SP 4CH (A/L) 46 ml - LA ESV SP 2CH (A/L) 23 ml - LA ESV BP (A/L) 34 ml - LA ESV BP (A/L) index 15.26 ml/m2 - LA ESV SP 4CH (MOD) 37 ml - LA ESV SP 2CH (MOD) 23 ml - Name Value Normal Range MV E-wave Vmax 0.6 m/sec - MV deceleration time 250 msec - MV A-wave Vmax 0.5 m/sec - MV E:A ratio 1.23 ratio - LV septal e' Vmax 0.08 m/sec - LV lateral e' Vmax 0.08 m/sec - LV E:e' septal ratio 7.5 ratio - LV E:e' lateral ratio 7.5 ratio - Name Value Normal Range AV Vmax 1.3 m/sec - AV VTI 27.1 cm - AV peak gradient 6.47 mmHg - AV mean gradient 2.63 mmHg - LVOT Vmax 1 m/sec - LVOT VTI 20.7 cm - LVOT peak gradient 3.94 mmHg - LVOT mean gradient 2.16 mmHg - Name Value Normal Range PV Vmax 0.7 m/sec - PV peak gradient 1.91 mmHg -
--- NOTE | 2017-03-30 10:56 | DS ---
DISCHARGE SUMMARY: DATE OF ADMISSION: 03/28/17 DATE OF DISCHARGE: 03/29/17 ADMITTING PROVIDER: Gonsalo Moulton MD PRIMARY CARE PROVIDER: Julius Tomas MD ATTENDING PHYSICIAN: Gonsalo Moulton MD CHIEF COMPLAINT: Profound weakness x36 hours in the setting of recent viral illness/productive cough . PRINCIPAL DIAGNOSIS: Rhabdomyolysis in the setting of viral illness and statin use. HISTORY OF PRESENT ILLNESS AND HOSPITAL COURSE: Jose Love is a 71-year-old male with past medica l history of hyperlipidemia, on Crestor; spinal stenosis with recent corticosteroid epidural injectio n 3 weeks prior to admission. One week prior to admission started developing frequent productive cou gh, slight headache. Eventually, had called in Dr. Tomas's office and gotten a prescription empirica lly for Tamiflu. No swab was done at that time. This was all over the phone. He denied fevers or c hills. Had occasional slight nausea. For the last 36 hours prior to admission, he had profound gene ralized weakness, worse in his legs and inability to get out of his bed. The story somewhat changed, saying sometimes that he fell off his bed, but then actually denying falling, and seemed like he jus t was not able to get up, and when he went to the bathroom, had to crawl on the floor, and at some po int of time, he was lying on the ground for at least a few hours. Upon presentation to [facility] Emergency Room, he was found to have elevated troponin of 0.13, was tachycardic at 105, had a D-dimer of 387, l actic acid of 2.2. He had a CT chest angiogram, which did not show any evidence of pulmonary embolis m, had atelectasis at the bilateral lower bases. Dr. Eddy of Neurology was consulted when they fo und out he has history of recent corticosteroid epidural injection. CK was drawn and found to be cheryl vated at 16,500, concerning for rhabdomyolysis. ESR was 38, CRP was 66.6. His EKG showed Q waves in III, sinus tachycardia, and poor R- wave progression. He was aggressively hydrated with boluses in the ED and then 200 cc normal saline an hour overnight. His CK fell to 3400 by morning labs. He wor ked with Physical Therapy, was able to ambulate without assistance. Dr. Zelaya and Dr. Brand consul keily and the patient was started on a low dose beta leander and he was recommended to have inpatient n uclear stress test on 03/30/17; however, the patient, who is noted to be a DNR/DNI, had a very strong preference to discuss further cardiac workup with Dr. Tomas before proceeding. He did have a bedsi de echo in the emergency room with Dr. Zelaya and a formal echo on hospital day #2, which demonstrat ed preserved ejection fraction, no regional wall motion abnormalities or valvular disease. His tropo nins had fallen by hospital day morning to 0.09 and he was without chest pain or shortness of breath. Dr. Eddy was recommending following up as an outpatient in 3 to 4 weeks given this is the second occurrence of a virus precipitating profound weakness and there may be some underlying myopathy that is exacerbated in such state. He was recommended to stop his Crestor or other statins, can be discu ssed with PCP and Cardiology. Dr. Zelaya notes that "Crestor should be stopped and if statin is res umed in the future, it should be done so with care and careful monitoring of CPK as they could have c ontributed to the rhabdomyolysis." The patient is obese, does have a family history with brother tanvir uiring a bypass surgery and mother dying at age 82 of myocardial infarction and the patient is recomm ended to follow up with an outpatient stress test. He was also given referral to see Dr. Zelaya. H e is also recommended to have obstructive sleep apnea study/sleep study. Of note, the patient was in itially afebrile, did spike a fever, likely in the setting of viral illness the night of admission to 101.3 at 11 p.m. Blood cultures were obtained and those results are not yet available, and should b e followed up on, especially if the patient has any further signs of fevers, hypotension, lightheaded ness, or signs of infection. The patient previously had for many years been taking Lipitor, but disc ontinued that after muscle aches. DISCHARGE MEDICATIONS: Include: 1. Metoprolol succinate 25 mg p.o. daily (new). 2. Multivitamin tab 1 tab p.o. q.a.m. Of note, his Crestor has now been stopped. DIET: Recommended heart healthy. ACTIVITY LEVEL: No restrictions, but would avoid strenuous activity within the next 5 days, was richard mmended. Keep well hydrated. FOLLOWUP: Please follow up with Dr. Julius Tomas. He already has a vi sit scheduled on 04/07/17, also will see Dr. Eddy within 3 to 4 weeks, and [place] [facility] [place]annie Zelaya. TIME SPENT: Time spent on discharge was 35 minutes. [id number]/[facility] #: [id number]
== END 2017-03-29 14:46 | disposition home or self-care (01) ==
LOC: ED 10:13 → MEDTELE 13:51
PROVIDERS: ADMIT Internal Medicine; ATTEND Internal Medicine
DX: R79.89 Other specified abnormal findings of blood chemistry (principal); R53.1 Weakness; R05 Cough; R51 Headache; R06.02 Shortness of breath; R42 Dizziness and giddiness; Z87.891 Personal history of nicotine dependence; M62.82 Rhabdomyolysis; M60.9 Myositis, unspecified; E66.01 Morbid (severe) obesity due to excess calories; E78.5 Hyperlipidemia, unspecified; M48.00 Spinal stenosis, site unspecified; R35.8 Other polyuria; Z98.890 Other specified postprocedural states; K80.20 Calculus of gallbladder without cholecystitis without obstruction; I25.10 Atherosclerotic heart disease of native coronary artery without angina pectoris
CPT/HCPCS: 36415; 71045; 71275; 80048; 80053; 81003; 81015; 82550; 82553; 83036; 83605; 83735; 83874; 83880; 84100; 84443; 84484; 85025; 85379; 85652; 86140; 87040; 87502; 87899; 93005; 93306; 99283; A9270-GY; C8929; G0378; G8978-GP-CH; G8979-GP-CH; G8980-GP-CH; J1644; Q9967